=== PATIENT | male | born 1945 | race Caucasian/White ===

== ENCOUNTER 2016-12-10 07:30 | Emergency (ER) | payer MEDICARE, OTHER ==
[2016-12-10 07:41] VITALS: BP 133/77
--- NOTE | 2016-12-10 08:24 | UC ---
Steven Tracy Thomas, scribed for Amanda Dave MD on 12/10/16 at 0757 . Throat Pain/Nasal Rogerio HPI - HPI Summary HPI Summary: The pt is a 71 y/o F [place] [facility] [place]/o sore throat, cough, chest congestion , and eye discharge that began 8 days ago. He rates his pain 5/10, pressure The illness is aggravated and alleviated by nothing. He was seen by Dr. Ingram 8 days ago for a persistent plant-like smell originating from his nose, and symptoms worsened since his visit there. He was prescribed a nasal spray thought to be a steroid by Dr. Ingram and afterwards his complaints began. Pt sates he has been getting bloody noses from the right so stopped using spray 4 days ago. Pt reports thick green mucous - both from nasal passage and pnd. Pt report dental ache R>L. Pt denies fever and visual changes. No decongestant used. He denies recent travel and recent sick contacts. 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 PMHx: urinary incontinence, hearing loss. PSHx: cholecystectomy, R shoulder surgery, vasectomy, carpal tunnel surgery. SHx: no tobacco, daily alcohol. FHx: negative for sinus problems. He is scheduled to return to Dr. Ingram at the end of the month. Dr. Ingram did not find any polyps at his last appointment. Patients medication reviewed this visit. - History of Current Complaint Chief Complaint: UCRespiratory Stated Complaint: SORE THROAT CONGESTION EYE ISSUE Time Seen by Provider: 12/10/16 07:33 Hx Obtained From: Patient Onset/Duration: Lasting Days - 8 days, Still Present Pain Intensity: 5 Pain Scale Used: 0-10 Numeric Associated Signs & Symptoms: Positive: Dysphagia, Sinus Discomfort, Nasal Discharge. Negative: Wheezing, Fever - Allergies/Home Medications Allergies/Adverse Reactions: Allergies Allergy/AdvReac Type Severity Reaction Status Date / Time No Known Allergies Allergy Verified 12/10/16 07:41 Home Medications: Home Medications Losartan TAB* [Cozaar TAB*] 25 mg PO DAILY 12/10/16 [History Confirmed 12/10/16] Omeprazole CAP* [Prilosec CAP* 20 MG] 20 mg PO DAILY 12/10/16 [History Confirmed 12/10/16] Tamsulosin CAP* [Flomax CAP*] 0.4 mg PO DAILY 12/10/16 [History Confirmed ] PMH/Surg Hx/FS Hx/Imm Hx Previously Healthy: No - Hearing loss Other GI/ History: Urinary incontinence - Surgical History Surgical History: Yes Surgery Procedure, Year, and Place: carpel tunnel x 2 , gallbladder, R shoulder - Family History Known Family History: Positive: Other - NEG: sinus discomfort Negative: Diabetes - Social History Lives: With Family Alcohol Use: Daily Alcohol Amount: wine Substance Use Type: None Smoking Status (MU): Never Smoked Tobacco Review of Systems Constitutional: Negative Skin: Negative Eyes: Negative ENT: Dental Pain, Sore Throat, Nasal Discharge, Sinus Congestion, Sinus Pain/ Tenderness, Other - POS: "plant-like smell" from nose, dental ache Respiratory: Other - POS: chest congestion Cardiovascular: Negative Gastrointestinal: Negative Genitourinary: Negative Motor: Negative Neurovascular: Negative Musculoskeletal: Negative Neurological: Negative Psychological: Negative All Other Systems Reviewed And Are Negative: Yes Physical Exam Triage Information Reviewed: Yes Appearance: Well-Appearing, No Pain Distress, Well-Nourished Vital Signs: Initial Vital Signs Temp 98.8 F 12/10/16 07:35 Pulse 71 12/10/16 07:35 Resp 16 12/10/16 07:35 BP 133/77 12/10/16 07:35 Pulse Ox 96 12/10/16 07:35 Vital Signs Reviewed: Yes Eye Exam: Normal ENT: Positive: Pharynx normal, Nasal congestion, Nasal drainage, TMs normal, Other: - turbinates inflammed and boggy mild discomfort b/l max sinuses R>L + thick, yellow PND Pt with mild puffiness b/l cheeks R>L No exudate, no erythema. Negative: Hearing grossly normal - assistance device, TM bulging, Tonsillar swelling, Tonsillar exudate Dental Exam: Normal Neck exam: Normal Neck: Positive: Supple, Nontender, No Lymphadenopathy Respiratory Exam: Normal Respiratory: Positive: Chest non-tender, Lungs clear, Normal breath sounds, No respiratory distress, No accessory muscle use Cardiovascular Exam: Normal Cardiovascular: Positive: RRR, No Murmur, Pulses Normal Abdominal Exam: Normal Abdomen Description: Positive: Nontender, No Organomegaly, Soft Bowel Sounds: Positive: Present Musculoskeletal Exam: Normal Musculoskeletal: Positive: Strength Intact Neurological Exam: Normal Neurological: Positive: Alert Psychological Exam: Normal Psychological: Positive: Normal Response To Family Skin Exam: Normal Throat Pain/Nasal Course/Dx - Course Assessment/Plan: The patient is a 71 y/o M presenting [place] [facility] complains of sore throat and sinus congestion. Pt reports progressive sx x 8 days s/o ENT evaluation and scope. He additionally complains thick, green mucous, PND, sinus pressure. Will start Augmentin. Recommend restart nasal spray - every other day if needed for epistaxis. hydrate. secretion precaution. ENT f/u - Differential Dx/Diagnosis Provider Diagnoses: sinusitis Discharge - Discharge Plan Condition: Stable Disposition: HOME Prescriptions: Amoxicillin/Clavulanate TAB* [Augmentin TAB 875*] 875 mg PO BID #20 tab Patient Education Materials: Rhinosinusitis (ED) Referrals: Benita James MD [Primary Care Provider] - Additional Instructions: - STay well hydrated. Drink plenty of non-alcoholic, non-caffinated beverages - take antibiotics as prescribed until gone. These will likely cause diarrhea. - It is recommend you resume nasal spray - every other day is okay if experiencing nose bleed - After you have been on antibiotics for 2 days - change your toothbrush and your pillowcase. These infections are spread by secretions - do NOT share eating or drinking utensils - clean items you share with other people such as iphone, computer mouse, TV remote, etc - Alternate ibuprofen (Advil, Motrin) 600mg and Tylenol every 3 hours for pain or fever. Do not take for more than 3-4 days - Okay to take over the decongestants as needed - Keep your follow-up appointment with ENT as scheduled. Contact your ENT provider, primary doctor or return with questions or concerns The documentation as recorded by the Steven saucedo Thomas accurately reflects the service I personally performed and the decisions made by , Amanda Dave MD.
== END 2016-12-10 08:04 | disposition home or self-care (01) ==
LOC: UCEAST 07:30
DX: J32.9 Chronic sinusitis, unspecified (principal); H91.90 Unspecified hearing loss, unspecified ear; R32 Unspecified urinary incontinence
CPT/HCPCS: 99202; G0463

== ENCOUNTER 2017-06-14 17:04 | Emergency (ER) | payer MEDICARE, OTHER ==
[2017-06-14 17:23] VITALS: BP 131/71
[2017-06-14] MEDS ORDERED: Oseltamivir CAP* 75 MG CAP PO ONE (17:24)
--- NOTE | 2017-06-14 17:28 | UC ---
Brenden Tracy Stephanie, scribed for Tripp Osorio MD on 06/14/17 at 1709 . FLU HPI - HPI Summary HPI Summary: The pt is a 72 y/o M presenting to with c/o flu symptoms that began earlier today. Symptoms include nasal congestion, rhinorrhea and body aches. - History of Current Complaint Stated Complaint: COUGH/COPNGESTION Time Seen by Provider: 06/14/17 17:07 Hx Obtained From: Patient Onset/Duration: Lasting Days - 1, Still Present Pain Scale Used: 0-10 Numeric Associated Signs & Symptoms: Positive: Nasal Congestion - Allergy/Home Medications Allergies/Adverse Reactions: Allergies Allergy/AdvReac Type Severity Reaction Status Date / Time No Known Allergies Allergy Verified 06/14/17 17:17 PMH/Surg Hx/FS Hx/Imm Hx Cardiovascular History: Hypertension - Surgical History Surgical History: Yes Surgery Procedure, Year, and Place: carpel tunnel x 2 , gallbladder, R shoulder - Family History Known Family History: Positive: Other - NEG: sinus discomfort Negative: Diabetes - Social History Occupation: Employed Part-time Lives: With Family Alcohol Use: Daily Alcohol Amount: wine Substance Use Type: None Smoking Status (MU): Never Smoked Tobacco Review of Systems Constitutional: Negative Skin: Negative Eyes: Negative ENT: Nasal Discharge, Sinus Congestion Respiratory: Negative Cardiovascular: Negative Gastrointestinal: Negative Genitourinary: Negative Motor: Negative Neurovascular: Negative Musculoskeletal: Myalgia Neurological: Negative Psychological: Negative All Other Systems Reviewed And Are Negative: Yes Physical Exam Triage Information Reviewed: Yes Vital Signs: Initial Vital Signs Temp 100.3 F 06/14/17 17:19 Pulse 93 06/14/17 17:19 Resp 17 06/14/17 17:19 BP 131/71 06/14/17 17:19 Pulse Ox 96 06/14/17 17:19 Vital Signs Reviewed: Yes - Additional Comments General: well-appearing, no pain distress Skin: warm, color reflects adequate perfusion, dry Head: normal Eyes: EOMI, KARINA ENT: rhinorrhea, mild posterior pharynx erythema Neck: supple, nontender Respiratory: CTA, breath sounds present Cardiovascular: RRR Abdomen: soft, nontender Bowel: present Musculoskeletal: normal, strength/ROM intact Neurological: normal, sensory/motor intact, A&O x3 Psychological: affect/mood appropriate Flu Course/Dx - Course Course Of Treatment: Medications reviewed. BP noted and advised to follow up with PCP. HAS THE FLU. WILL TREAT WITH TAMIFLU. - Differential Dx/Diagnosis Provider Diagnoses: INFLUENZA Discharge - Discharge Plan Condition: Stable Disposition: HOME Prescriptions: Oseltamivir CAP* [Tamiflu CAP*] 75 mg PO BID #9 cap Patient Education Materials: Influenza (ED) Referrals: Benita James MD [Medical Doctor] - Additional Instructions: FOLLOW UP WITH YOUR DOCTOR. GET RECHECKED FOR ANY WORSENING OF YOUR CONDITION OR QUESTIONS OR CONCERNS. Your blood pressure was elevated during todays visit; please follow up with your primary care provider within a week for further evaluation. The documentation as recorded by the Brenden saucedo Stephanie accurately reflects the service I personally performed and the decisions made by me, Tripp Osorio MD.
== END 2017-06-14 17:29 | disposition home or self-care (01) ==
LOC: UCEAST 17:04
DX: J11.1 Influenza due to unidentified influenza virus with other respiratory manifestations (principal); I10 Essential (primary) hypertension; Z90.49 Acquired absence of other specified parts of digestive tract
CPT/HCPCS: 99212; A9270-GY; G0463

== ENCOUNTER 2017-08-23 16:57 | Observation (INO) | payer MEDICARE, OTHER ==
[2017-08-23 17:51] LABS: ABS Basophils 0.1 10^3/ul (0-0.2); ABS Eosinophils 0.2 10^3/ul (0-0.6); ABS Lymphocytes 1.1 10^3/ul (1.0-4.8); ABS Monocytes 0.5 10^3/ul (0-0.8); ABS Neutrophils 6.5 10^3/ul (1.5-7.7); ABS Nucleated RBC 0 10^3/ul; Eosinophil % 2.2 % (0-6); Hematocrit 46 % (42-52); Hemoglobin 15.4 g/dl (14.0-18.0); Lymphocyte % 12.8 % (25-47); Mean Corpuscular HGB Conc 34 g/dl (31-36); Mean Corpuscular Hemoglobin 27 pg (27-31); Mean Corpuscular Volume 81 fL (80-94); Nucleated Red Blood Cells % 0.5; Platelet Count 195 10^3/ul (150-450); Red Blood Count 5.65 10^6/ul (4.0-5.4); Red Cell Distribution Width 14 % (10.5-15); White Blood Count 8.3 10^3/ul (3.5-10.8)
[2017-08-23 17:59] LABS: INR 0.98 (0.77-1.02)
[2017-08-23 18:08] LABS: EGFR Non-African American 64.6 (>60)
--- NOTE | 2017-08-23 18:10 | RAD ---
INDICATION: Dizziness COMPARISON: None. TECHNIQUE: Contiguous axial sections of the brain were obtained from the skull base to the vertex without contrast. FINDINGS: The ventricles, cisterns and sulci are within normal limits. The figueroa-white matter differentiation is adequately maintained and there is no sulcal effacement. No significant focal abnormality or mass effect is present. There is no evidence for intracranial hemorrhage. No significant focal osseous abnormality is present. The visualized portion of the paranasal sinuses appear clear. The mastoid air cells are well aerated bilaterally. IMPRESSION: Normal CT of the brain.
--- OUTSIDE RECORDS SUMMARY | 2017-08-23 18:48 | XMS REPORT ---
:1945 External Reference #:[id number] Author Organization [facility] Address [address] [place] [address] Phone [phone] Care Team Providers Name Role Phone Benita James MD Primary Care Physician Unavailable Payers Type Date Identification Numbers Payment Provider Subscriber Medicare Primary Policy Number: [id number] Medicare Levy Lau PayID: [id number] [address] [place] [address] Medigap Part B Effective: 1999 Policy Number: [id number] [employer]. Levy Lau Expires: 2014 Group Number: [id number] [address] PayID: [place] [address] Medigap Part B Effective: Policy Number: Lifetime Benefits Levy Lau 2014 [id number] Group Number: [id number] 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 Active Onset: 08/01/2010 Orchitis and epididymitis Tripp Lucas M.D. Active Onset: 12/05/2014 Raised prostate specific antigen Jose Luis Leonard P.A.-C Active Onset: 12/05/2014 Urgent desire to urinate Jose Luis Leonard P.A.-C Active Onset: 12/05/2014 Nocturia Jose Luis Leonard P.A.-C Active Onset: 07/27/2017 Dribbling of urine Margaret Stewart PA Active Family History Date Family Member(s) Problem(s) Comments General Kidney stones First Brother Kidney stones Free Text Denies Prostate, Bladder, Kidney Cancer. No family history of kidney stones. Social History Type Date Description Comments Occupation Patient is retired Cigarette Use Never Smoked Cigarettes Cigars Never Smoked Cigars Pipe Never Smoked A Pipe ETOH Use Occ Alcohol Intake Allergies, Adverse Reactions, Alerts Date Description Reaction Status Severity Comments 10/26/2012 No Known Drug Allergy active 09/16/2011 No Known Drug Allergy inactive Medications Medication Date Status Form Strength Qnty SIG Indications Ordering Provider Multivitamins // Active Unknown 0000 Tamsulosin HCL / Active Capsules 0.4mg 1 by Unknown 0000 mouth every day Omeprazole / Active Capsules 20mg Unknown 0000 DR Losartan Potassium / Active Tablets 100mg Unknown 0000 Hydrochlorothiazide / Active Capsules 12.5mg 1 x a Unknown 0000 day Toviaz 01/05/ Hx Tablets ER 8mg 30tabs 1 by Shayy 2014 - 24HR mouth Tripp 07/15/ every H, M.D. 2015 day Cipro 06/10/ Hx Tablets 500mg 14tabs 1 po Shayy 2013 - bid x Tripp days H, M.D. 2013 Aspirin / Hx Tablets 81mg Unknown 0000 - 2013 Losartan Potassium 00/ Hx Unknown 0000 - 2014 Vital Signs Date Vital Result Comment 07/27/2017 Height 66 inches 5'6" Weight 218.00 lb Weight in kg's 98.885 BMI (Body Mass Index) 35.2 kg/m2 BP Systolic 141 mmHg BP Diastolic 81 mmHg Heart Rate 73 /min Post Void Residual ml 20 Bladder Scanner 07/21/2016 Height 66 inches 5'6" Weight 210.00 lb Weight in kg's 95.256 BMI (Body Mass Index) 33.9 kg/m2 BP Systolic 160 mmHg BP Diastolic 82 mmHg Heart Rate 66 /min Respiratory Rate 18 /min 07/16/2015 Height 66 inches 5'6" Weight 214.00 lb Weight in kg's 97.070 BMI (Body Mass Index) 34.5 kg/m2 BP Systolic 171 mmHg BP Diastolic 86 mmHg Heart Rate 56 /min Post Void Residual ml 50 03/23/2015 BP Systolic 152 mmHg BP Diastolic 82 mmHg Heart Rate 66 /min Post Void Residual ml 0 12/05/2014 Height 66 inches 5'6" Weight 207.00 lb Weight in kg's 93.895 BMI (Body Mass Index) 33.4 kg/m2 BP Systolic 187 mmHg BP Diastolic 93 mmHg Heart Rate 68 /min Post Void Residual ml 44 Bladder Scan 11/01/2014 Height 66 inches 5'6" Weight 206.00 lb Weight in kg's 93.442 BMI (Body Mass Index) 33.2 kg/m2 BP Systolic 161 mmHg BP Diastolic 75 mmHg Heart Rate 52 /min Post Void Residual ml 19 Bladder Scan 11/01/2013 Height 66 inches 5'6" Weight 203.00 lb Weight in kg's 92.081 BMI (Body Mass Index) 32.8 kg/m2 BP Systolic 140 mmHg BP Diastolic 80 mmHg Heart Rate 47 /min 10/26/2012 Height 66 inches 5'6" Weight 203.00 lb Weight in kg's 92.081 BMI (Body Mass Index) 32.8 kg/m2 BP Systolic 136 mmHg BP Diastolic 88 mmHg Heart Rate 70 /min Post Void Residual 5 09/16/2011 Height 66 inches 5'6" Weight 216.00 lb BP Systolic 147 mmHg BP Diastolic 85 mmHg Heart Rate 54 /min Respiratory Rate 20 /min 09/12/2010 Height 66 inches 5'6" Weight 207.50 lb BP Systolic 156 mmHg BP Diastolic 82 mmHg Heart Rate 55 /min Respiratory Rate 18 /min 05/09/2010 BP Systolic 149 mmHg BP Diastolic 66 mmHg Heart Rate 65 /min Respiratory Rate 18 /min 09/12/2009 BP Systolic 141 mmHg BP Diastolic 83 mmHg Heart Rate 63 /min Respiratory Rate 18 /min O2 % BldC Oximetry 96 % 09/12/2008 BP Systolic 140 mmHg BP Diastolic 79 mmHg Heart Rate 50 /min Respiratory Rate 20 /min 09/14/2007 BP Systolic 150 mmHg BP Diastolic 81 mmHg Heart Rate 60 /min Respiratory Rate 20 /min 09/14/2006 BP Systolic 151 mmHg BP Diastolic 80 mmHg Heart Rate 52 /min Respiratory Rate 16 /min 09/16/2005 BP Systolic 139 mmHg BP Diastolic 75 mmHg Heart Rate 50 /min 09/12/2004 BP Systolic 111 mmHg BP Diastolic 66 mmHg Heart Rate 55 /min Results Test Date Test Result H/L Range Note 230 Ua Routine 07/27/2017 Ua Glucose Negative Ua Protein Negative Ua Nitrite Negative Ua Leuko Negative Ua Blood Negative Ua Color Not Entered Ua Ketones Negative Ua Clarity Not Entered Ua Specific [place] 1.025 1.003-1.030 Ua PH 6.0 5.0-7.5 Ua Bilirubin Negative Ua Urobilinogen 0.2 E.U./dL 0.0-1.0 Laboratory test finding 07/22/2017 Total Psa Only 1.13 ng/mL 0.00-4.00 230 Ua Routine 07/21/2016 Ua Glucose Negative Ua Protein Negative Ua Nitrite Negative Ua Leuko Negative Ua Blood Negative Ua Color Not Entered Ua Ketones Negative Ua Clarity Not Entered Ua Specifici [place] 1.025 1.003-1.030 Ua PH 6.5 5.0-7.5 Ua Bilirubin Negative Ua Urobilinogen 0.2 E.U./dL 0.0-1.0 Laboratory test finding 07/16/2016 Total Psa Only 1.39 ng/mL 0.00-4.00 230 Ua Routine 07/16/2015 Ua Glucose Negative Ua Protein Negative Ua Nitrite Negative Ua Leuko Negative Ua Blood Negative Ua Color Not Entered Ua Ketones Negative Ua Clarity Not Entered Ua Specifici [place] 1.020 1.003-1.030 Ua PH 5.5 5.0-7.5 Ua Bilirubin Negative Ua Urobilinogen 0.2 E.U./dL 0.0-1.0 Laboratory test finding 07/11/2015 Total Psa Only 1.08 ng/mL 0.00-4.00 230 Ua Complete 03/23/2015 Ua Glucose Negative Ua Protein Negative Ua Nitrite Negative Ua Leuko Negative Ua Blood Negative Ua Color Not Entered Ua Ketones Trace Ua Clarity Not Entered Ua Specific [place] 1.020 1.003-1.030 Ua PH 5.0 5.0-7.5 Ua Bilirubin Negative Ua Urobilinogen 0.2 E.U./dL 0.0-1.0 Laboratory test finding 12/05/2014 Rectal Swab Screen NEGATIVE - No Fl < SEE 1 NOTE> Laboratory test finding 12/05/2014 % PSA 35 Total Psa Only 1.25 ng/mL 0.00-4.00 Free PSA 0.433 ng/mL #Ua Routine 12/05/2014 Ua Glucose Negative Ua Protein Negative Ua Nitrite Negative Ua Leuko Negative Ua Blood Negative Ua Color Not Entered Ua Ketones Negative Ua Clarity Not Entered Ua Specific [place] 1.015 1.003-1.030 Ua PH 7.0 5.0-7.5 Ua Bilirubin Negative Ua Urobilinogen 0.2 E.U./dL 0.0-1.0 Basic Metabolic Panel 11/01/2014 Sodium 138 mmol/L 136-145 Potassium 4.3 mmol/L 3.6-5.2 Chloride 104 mmol/L 100-108 Co2 26 mmol/L 21-32 Glucose 92 mg/dL 70-110 2 BUN 15 mg/dL 7-21 Creatinine 0.7 mg/dL 0.6-1.3 3 Calcium 9.0 mg/dL 8.5-10.8 GFR >60 Laboratory test finding 11/01/2014 Total Psa Only 1.49 ng/mL 0.00-4.00 #Ua Routine 11/01/2014 Ua Glucose Negative Ua Protein Negative Ua Nitrite Negative Ua Leuko Negative Ua Blood Negative Ua Color Not Entered Ua Ketones Negative Ua Clarity Not Entered Ua Specific [place] 1.010 1.003-1.030 Ua PH 5.5 5.0-7.5 Ua Bilirubin Negative Ua Urobilinogen 0.2 E.U./dL 0.0-1.0 #Ua Routine 11/01/2013 Ua Glucose Negative Ua Protein Negative Ua Nitrite Negative Ua Leuko Negative Ua Blood Trace-intact Ua Color Not Entered Ua Ketones Trace Ua Clarity Not Entered Ua Specific [place] 1.020 1.003-1.030 Ua PH 7.0 5.0-7.5 Ua Bilirubin Negative Ua Urobilinogen 0.2 E.U./dL 0.0-1.0 Laboratory test finding 10/28/2013 Total Psa Only 0.68 ng/mL 0.00-4.00 #Ua Routine 10/26/2012 Ua Glucose Negative Ua Protein Negative Ua Nitrite Negative Ua Leuko Negative Ua Blood Negative Ua Color Not Entered Ua Ketones Negative Ua Clarity Not Entered Ua Specific [place] 1.015 Ua PH 5.5 Ua Bilirubin Negative Ua Urobilinogen 0.2 E.U./dL Laboratory test 10/18/2012 Total PSA 0.49 ng/mL 0.00-4.00 finding Xray 03/30/2012 US ?right epididymitis Testicular/Scrotum/ Scrotal Xray 03/30/2012 CT Abdomen & hep/RRcyst,[id number] Pelvis W/O Contrast Laboratory test 09/10/2011 PSA Screening 0.73 ng/ml finding Laboratory test 09/12/2010 PSA Total 0.66 NG/ML ng/ml 0-4.0 finding Laboratory test 09/12/2009 PSA Total 0.65 ng/ml ng/ml 0-4.0 finding Laboratory test 09/13/2008 PSA Total 0.25 ng/ml ng/ml 0-4.0 finding Laboratory test 09/15/2007 PSA Total 0.46 ng/ml ng/ml 0-4.0 finding Laboratory test 09/16/2006 PSA Total 0.42 NG/ML ng/ml 0-4.0 finding Laboratory test 09/10/2005 PSA Total 0.17 NG/ML finding Laboratory test 09/12/2004 PSA Total O.33 finding 1 NEGATIVE - No Fluoroquinolone Resistant Organisms Isolated 2 The [place] [employer] recommends that the upper limit of the normal reference range for Glucose be 100 mg/dl. 3 Normal Kidney Function or Mild Disease - GFR >OR=60 Chronic Kidney Disease - GFR 15-59 Renal Failure - GFR < 15 GFR not calculated on patients under 18 years of age. Procedures Date CPT Code Description Status 07/27/2017 16896 Bladder Scan, Post Voiding Residual Urine Completed 07/27/2017 28741 Urodynamics, Complex Uroflowmetry Eg Calibrated Completed Electronic Office 07/16/2015 41173 Bladder Scan, Post Voiding Residual Urine Completed 03/23/2015 13681 Bladder Scan, Post Voiding Residual Urine Completed 12/05/2014 94357 Bladder Scan, Post Voiding Residual Urine Completed 12/05/2014 18980 Urodynamics, Complex Uroflowmetry Eg Calibrated Completed Electronic Office 11/01/2014 19322 Bladder Scan, Post Voiding Residual Urine Completed 10/26/2012 92725 Bladder Scan, Post Voiding Residual Urine Completed 09/16/2011 66681 Bladder Scan, Post Voiding Residual Urine Completed 09/12/2010 48566 Bladder Scan, Post Voiding Residual Urine Completed 09/12/2008 44957 Bladder Scan, Post Voiding Residual Urine Completed 09/14/2007 87447 Bladder Scan, Post Voiding Residual Urine Completed 05/08/2004 49614 Excision Of Hydrocele; Unilateral Completed Encounters Type Date Location Provider CPT E/M Dx Office Visit 07/27/2017 8:00a Kristina/ [place] [address] R39.15 Urology R35.1 N40.1 N39.43 Office Visit 07/21/2016 8:00a Kristina/ Jose Luis Blancas, 40158 R39.15 Urology P.A.-C R35.1 R97.20 Office Visit 07/16/2015 9:00a Kristina/ Nicole.Jose Luis Zapata, 53919 R39.15 Urology P.A.-C R35.1 Z12.5 Office Visit 03/23/2015 8:40a Kristina/ Jose Luis Blancas 00516 R39.15 Urology P.A.-C N40.0 R35.1 Office Visit 12/05/2014 8:20a Kristina/ Nicole.MJose Luis Canseco, 45077 790.93 Urology P.A.-C 788.63 788.43 Office Visit 11/01/2014 8:20a Kristina/ Nicole.Jose Luis Zapata, 92436 V76.44 Urology P.A.-C 600.00 788.62 Office Visit 11/01/2013 8:00a Kristina/ Jose Luis Blancas 23832 V76.44 Urology P.A.-C 600.00 788.43 604.90-2 Office Visit 10/26/2012 8:20a Kristina/ Nicole.Jose Luis Zapata, 11579 600.00 Urology P.A.-C 788.43 V76.44 Plan of Care Future Appointment(s):07/28/2018 8:00 am - Margaret Stewart PA at [place]/ A.M.P. [id number]/22/2018 8:20 am - Kristina Nurse at [place]/ A.M.P[facility] [id number] - Margaret Stewart, PAR39.15 Urgency of urinationComments:Discussed with patient that there are medications that could help with urgency but he states the symptoms are not too bothersome for him at this time.R35.1 NocturiaComments: PVR obtained via bladder scanner showing normal residual. Nocturia is chronic and stable for patient.N40.1 Benign prostatic hyperplasia with lower urinary tract sympComments:Patient with a slow progressive weakening in urinary stream and post void dribbling. Urodynamics waswith low volume and therefore little could be determined from test. Currently taking Flomax. Discussed with patient that we could add Finasteride to decrease size of prostate and it may aid in alleviating some of his symptoms but patient declined at this time. PSA remains stable and BRENT unchanged with enlarged but anodular prostate.N39.43 Post -void dribblingAllFollow up:-- Follow up in 1 year with psa prior
[2017-08-23] MEDS ORDERED: Ondansetron INJ* 2 MG/ML VIAL IV ONE (20:07)
[2017-08-23] MEDS ORDERED: Aspirin TAB* 325 MG PO ONE (20:09)
[2017-08-23] MEDS ORDERED: Iohexol 350* (CONTRAST) 500 ML MDV IV ONE (20:15)
[2017-08-23] MEDS ORDERED: Acetaminophen TAB* 325 MG PO PRN (20:32)
--- NOTE | 2017-08-23 20:46 | RAD ---
CPT II: CPT II Codes: 3100F INDICATION: Dizziness, palpitations and nausea COMPARISON: Same day CT of the brain TECHNIQUE: A CT angiogram of the head and neck was performed with 80 cc of Omnipaque 350. Contiguous axial sections were obtained from the thoracic inlet through the [place]. Images were reconstructed in the sagittal, coronal planes and in a 3-D volume rendered format. The distal cervical internal carotid artery diameter is used as the denominater for stenosis measurement. CTA NECK: The common and internal carotid arteries are patent without hemodynamically significant stenosis. Right: Immediately below the carotid bifurcation the common carotid artery measures 7 mm in diameter. Above the carotid bifurcation the right internal carotid artery measures 6 mm in diameter yielding approximately 16% degree stenosis. Left: Below the carotid bifurcation the common carotid artery measures 8 mm in diameter. Above the carotid bulb and the internal carotid artery measures 9 mm in diameter. This yields 0% degree stenosis. The vertebral arteries are patent without gross abnormality. CTA of the brain: The internal carotid, anterior and middle cerebral arteries appear are patent without high grade stenosis or occlusion. The vertebral, basilar and posterior cerebral arteries appear patent without high grade stenosis or occlusion. The left posterior communicating artery is either absent or extremely diminutive. No focal luminal filling defect, aneurysm or vascular malformation is seen. NON-ARTERIAL FINDINGS: There is slight heterogeneity of the left lobe of the thyroid. IMPRESSION: 1. Normal CT angiography of the head and neck. 2. Slight heterogeneity of the left lobe of the thyroid can be further characterizeD with a nonemergent ultrasound if clinically warranted.
[2017-08-23] MEDS ORDERED: Omeprazole CAP* 20 MG PO SCH (21:00)
[2017-08-23] MEDS: Heparin VIAL(*) 5000 UNITS/ML VIAL (FIVE THOUSAND) SUBCUT SCH (22:27)
--- NOTE | 2017-08-23 22:34 | HP ---
CC: Dr. James * HOSPITAL MEDICINE HISTORY AND PHYSICAL: DATE OF ADMISSION: 08/23/17 PRIMARY CARE PHYSICIAN: Dr. James. ATTENDING PHYSICIAN: Broderick Murdock MD * (dictation provided by Belén Lai NP). CHIEF COMPLAINT: Dizziness. HISTORY OF PRESENT ILLNESS: Mr. Lau is a 72-year-old male with A past medical history of hypertension, hyperlipidemia and obesity, who presents to the hospital today with concern for dizziness. Mr. Lau states that he last saw Dr. James on 08/17/17, at which time he incidentally noted that he was having some lightheadedness when he went from sit to stand. This was mild and it probably started about 2 weeks prior to the time of that visit. The patient states that yesterday afternoon, however, he had the sudden onset of extreme dizziness. He does not describe the room spinning, but describes a sensation of feeling like he is on a boat which causes him to be very unsteady with ambulation. He has no dizziness when he lies still. He has some nausea with dry heaves associated with this. It persisted through the day today and therefore, he came to the emergency room for evaluation. He denies chest pain, shortness of breath, vomiting, or abdominal pain. He has had no neurological deficits and denies any weakness or difficulty speaking. In the emergency room, Mr. Lau had a CT of the brain and a head and neck CTA, which showed no acute abnormalities. His EKG showed sinus rhythm with right bundle branch block and no evidence of ischemia. His labs are unremarkable. His vital signs are stable. He remained dizzy and there was concern for a possible posterior CVA and therefore, Hospital Medicine was called regarding admission and Dr. Sandoval was called regarding consultation. PAST MEDICAL HISTORY: 1. Hypertension. 2. Obesity. 3. Hyperlipidemia. MEDICATIONS: 1. Hydrochlorothiazide 12.5 mg p.o. daily. 2. Losartan 100 mg p.o. daily. 3. Omeprazole 20 mg p.o. every 3 days. 4. Tamsulosin 0.4 mg p.o. daily. ALLERGIES: No known drug allergies. FAMILY HISTORY: The patient reports his mother related to breast cancer. His dad related to stomach cancer. SOCIAL HISTORY: No reports of tobacco or drug use. The patient states he drinks 1to 2 glasses of wine per night. He lives with his who is the healthcare proxy. REVIEW OF SYSTEMS: A 14-point review of systems was completed with Mr. Lau and all those not mentioned above were negative. PHYSICAL EXAMINATION GENERAL: Mr. Lau is lying in the bed with his at the bedside. VITAL SIGNS: Temperature 98.4, pulse rate 64, respiratory rate 19, O2 saturation 92% on room air, blood pressure 144/79. The patient had orthostatic vital signs taken and they were negative. LUNGS: Clear to auscultation bilaterally with no accessory muscle use and good aeration. HEART: S1, S2. No murmur, rub, or gallop and regular. ABDOMEN: Soft, nontender with bowel sounds positive x4. EXTREMITIES: No cyanosis or edema. NEURO: He is alert. He is oriented x3. He moves all extremities equally. There is no facial asymmetry or focal weakness. There is no ataxia with finger- to-nose. There is no ataxia with heel to story. No nystagmus is noted on exam of the eyes. SKIN: Intact. LABORATORY DATA/DIAGNOSTIC STUDIES: Sodium 136, potassium 3.9, chloride 102, serum bicarbonate 25, BUN 19, creatinine 1.12, glucose 120. WBC 8.3, hemoglobin 15.4, hematocrit 46, platelet count 195,000. EKG shows sinus rhythm with a right bundle branch block and a heart rate in the 50s. CT brain read as follows. "Normal CT of brain." Head CTA is read as follows. "Normal CT angiography of the head and neck. Slight heterogenicity at the left lobe of the thyroid, can be further characterized with a non-emergent ultrasound clinically warranted." ASSESSMENT/PLAN: Mr. Lau is a 72-year-old male with a past medical history of hypertension and hyperlipidemia, who presents to the hospital today with concern for sudden onset of dizziness last evening. Plans are for observation in the hospital for the followin. Dizziness. The patient's CT of the brain and head and neck CTA are negative. The emergency room provider performed an Clary-Halpike maneuver and did not elicit any nystagmus. The patient reports that he felt okay during that procedure, but did begin to feel dizzy again about 5 to 10 minutes afterwards when he got up to ambulate. It is not clear that the symptoms were provoked by the examination. The concern is, of course, for posterior cerebrovascular accident. Dr. Sandoval has been consulted and she recommend the MRI brain. We will continue with aspirin. We will continue with telemetry monitoring. I will check his lipids. We will monitor his blood pressure. At this time, I am not ordering a transthoracic echocardiogram and think that could be added on when it is clear whether the patient did or did not have a stroke. 2. Hypertension. Blood pressure is well controlled. Continue hydrochlorothiazide, losartan. 3. Code status is full code. 4. DVT prophylaxis with heparin subcu. TIME SPENT: Approximately 60 minutes were spent in the admission of this patient, more than half of the time was spent with the patient at the bedside reviewing the events leading up to this hospitalization, performing the physical examination and reviewing my plan of care. BELÉN LAI NP [id number]/[facility] #: [id number] KHOI
[2017-08-24] MEDS: Heparin VIAL(*) 5000 UNITS/ML VIAL (FIVE THOUSAND) SUBCUT SCH (05:41)
[2017-08-24 08:20] VITALS: BP 122/67
[2017-08-24] MEDS ORDERED: Losartan TAB* 25 MG PO SCH (09:00)
[2017-08-24] MEDS ORDERED: Aspirin EC TAB* 325 MG PO SCH (09:00)
[2017-08-24] MEDS ORDERED: Tamsulosin CAP* 0.4 MG PO SCH (09:00)
[2017-08-24] MEDS ORDERED: Hydrochlorothiazide TAB* 25 MG PO SCH (09:00)
--- NOTE | 2017-08-24 11:04 | RAD ---
HISTORY: Dizziness, rule out stroke COMPARISONS: Head CT dated August 23, 2017 TECHNIQUE: The following sequences were obtained of the head: Sagittal T1-weighted images, axial T2-weighted images, axial FLAIR images, axial susceptibility weighted images, axial T1-weighted images. Additionally, axial diffusion-weighted images were obtained with calculated apparent diffusion coefficients. FINDINGS: HEMORRHAGE/INFARCT: There is no hemorrhage or acute infarct. MASSES/SHIFT: There is no mass or shift. EXTRA-AXIAL SPACES/MENINGES: There are no extra-axial fluid collections. SULCI AND VENTRICLES: The sulci and ventricles are normal in size and position for the patient's stated age. CEREBRUM: There are no focal parenchymal abnormalities. BRAINSTEM: There are no focal parenchymal abnormalities. CEREBELLUM: There are no focal parenchymal abnormalities. The cerebellar tonsils are normal in size and position. SELLA: The sella is normal. PINEAL: The pineal region is clear. CP ANGLE/TEMPORAL BONES: The labyrinthine structures are grossly normal. VESSELS: Normal flow-voids are noted within the visualized vertebral vasculature. DIFFUSION ABNORMALITIES: There are no diffusion abnormalities. PARANASAL SINUSES/MASTOIDS: The paranasal sinuses are clear. ORBITS: The orbits are unremarkable. BONES AND SOFT TISSUE: No bone or soft tissue abnormalities are noted. OTHER: None IMPRESSION: UNREMARKABLE MRI OF THE BRAIN. THERE IS NO RESTRICTED DIFFUSION TO SUGGEST ACUTE INFARCT.
[2017-08-24] MEDS ORDERED: NS 0.9% 1000 ML* 1,000 ML IV ONE (12:06)
--- NOTE | 2017-08-24 14:36 | DS ---
CC: Dr. James * DISCHARGE SUMMARY: DATE OF ADMISSION: 08/23/17 DATE OF DISCHARGE: 08/24/17 PRIMARY CARE PROVIDER: Dr. James. PRIMARY DIAGNOSIS: Orthostatic hypotension. SECONDARY DIAGNOSES: Include: 1. Hypertension. 2. Obesity. 3. Hyperlipidemia. MEDICATIONS ON DISCHARGE: Unchanged from admission include: 1. Hydrochlorothiazide 12.5 mg daily. 2. Tamsulosin 0.4 mg daily. 3. Prilosec mg every 3 days. 4. Losartan 100 mg daily. IMAGING PERFORMED DURING HOSPITAL STAY: 1. Brain MRI: No acute pathology. 2. Head CTA, impression: Normal CT angiogram of the head and neck. HISTORY OF PRESENT ILLNESS AND HOSPITAL COURSE: This is a 72-year-old man with past medical history as outlined in history of present illness on the day of admission presented to the hospital with several days of dizziness that had become acutely worse. He notes that it is worse when standing up, resolves when sitting. Orthostatic vital signs that were positive indicating level of dehydration. However, there was concern given its association with nausea and vomiting that he may have been suffering from posterior circulation CVA. An MRI was negative as indicated above as well as normal CTA. The patient improved with normal saline in the emergency room, he was observed in the hospital overnight. He felt better the following day, ambulated around the unit. He was given additional IV hydration during the course of his hospital stay. No complications during this patient's hospital stay. FOLLOWUP INSTRUCTIONS: At followup, please: 1. Can consider transition of hydrochlorothiazide to different antihypertensives if symptoms return. 2. Tamsulosin has also been known to cause orthostatic hypotension and/or vertigo, can consider transition to Flomax if needed. 3. No other specific labs or vitals that need followup. Reasons to return to the hospital including recurrent or worsening symptoms including chest pain, shortness of breath, nausea, vomiting, lightheadedness, loss of consciousness, bleeding from any source, inability to obtain or tolerate medications were discussed with the patient. He acknowledged understanding. TIME SPENT: Greater than 45 minutes was spent on this discharge of this patient , greater than half was spent [id number] with the patient. [id number]/[facility] #: [id number] [facility]
== END 2017-08-24 02:15 | disposition home or self-care (01) ==
LOC: ED 16:57 → MEDTELE 20:31
PROVIDERS: ADMIT Internal Medicine; ATTEND Internal Medicine
DX: I95.1 Orthostatic hypotension (principal); I10 Essential (primary) hypertension; E78.5 Hyperlipidemia, unspecified; E66.9 Obesity, unspecified; Z79.899 Other long term (current) drug therapy; R42 Dizziness and giddiness; I45.10 Unspecified right bundle-branch block
CPT/HCPCS: 36415; 70450; 70496; 70498; 70551; 80053; 80061; 84484; 85025; 85610; 93005; 96372; 96374; 99284; A9270-GY; G0378; J1644; J2405; Q9967